=== PATIENT | male | born 1990 | race African-American/Black ===

== ENCOUNTER 2023-03-18 18:41 | Emergency (ER) | payer OTHER ==
[~2023-03-18] VITALS: Ht 182.9 cm; Wt 86.0 kg
[2023-03-18 18:43] VITALS: O2SAT 98
[2023-03-18 20:25] LABS: BASOPHILS % 0.4 % (0.0-2.0); EOSINOPHILS % 0.4 % (0.0-5.0); HEMATOCRIT. 50.1 % (42.0-52.0); HEMOGLOBIN. 16.9 g/dL (14.0-18.0); LYMPHOCYTES % 27.6 % (20.0-50.0); MEAN CORPUSCULAR HEMOGLOBIN 30.5 pg (28.0-32.0); MEAN CORPUSCULAR HGB CONC 33.6 g/dL (31.0-37.0); MEAN CORPUSCULAR VOLUME 90.7 fL (80.0-94.0); MONOCYTES % 11.4 % (2.0-8.0); NEUTROPHILS % 60.2 % (40.0-76.0); RED BLOOD CELL COUNT 5.52 mill/uL (4.7-6.1); RED CELL DISTRIBUTION WIDTH 14.7 % (11.6-14.6); WHITE BLOOD COUNT 9.1 x1000/uL (4.5-11.0)
[2023-03-18 20:29] LABS: DIFFERENTIAL COMMENT 1
[2023-03-18 20:38] LABS: MEAN PLATELET VOLUME 9.5 fl (7.4-10.4); PLATELET 295 x1000/uL (130-400)
[2023-03-18 20:40] LABS: ALANINE AMINOTRANSFERASE 95 IU/L (10-49); ALBUMIN 4.1 g/dL (3.2-4.8); ASPARTATE AMINOTRANSFERASE 29 IU/L (<34); BILIRUBIN TOTAL 0.4 mg/dL (0.1-1.0); CALCIUM 8.9 mg/dL (8.7-10.4); CARBON DIOXIDE 21 mEq/L (21-32); CHLORIDE 106 mEq/L (98-107); CREATININE 0.9 mg/dL (0.6-1.3); GLUCOSE 109 mg/dL (70-105); POTASSIUM 3.7 mEq/L (3.5-5.1); PROTEIN TOTAL 7.7 g/dL (6.0-8.3); SODIUM 137 mEq/L (136-145); UREA NITROGEN BLOOD 7 mg/dL (9-23)
[2023-03-18 21:11] LABS: CLARITY URINE CLEAR (CLEAR); COLOR URINE DARK YELLOW (YELLOW); GLUCOSE URINE NEGATIVE (NEGATIVE); KETONES URINE TRACE (NEGATIVE); LEUKOCYTE ESTERASE URINE NEGATIVE (NEGATIVE); NITRITE URINE NEGATIVE (NEGATIVE); OCCULT BLOOD URINE NEGATIVE (NEGATIVE); PH URINE 5.5 (4.5-8.0); PROTEIN URINE TRACE (NEGATIVE); SPECIFIC GRAVITY URINE 1.038 (1.005-1.030)
[2023-03-18 21:43] LABS: BACTERIA URINE 1+; RBC URINE NONE SEEN /hpf (0-2); SQUAMOUS EPITHELIAL CELL URINE RARE /lpf (RARE/1+); WBC URINE 0-2 /hpf (0-2)
[2023-03-18 23:08] VITALS: BP 120/60; PULSE 61; RESP 18; TEMP 99.5
== END 2023-03-18 23:10 | disposition home or self-care (01) ==
LOC: ER 18:41
DX: R53.1 Weakness (principal); Z20.822 Contact with and (suspected) exposure to COVID-19
CPT/HCPCS: 36415; 71045; 80053; 81003; 85025; 87426; 87804; 99284